=== PATIENT | male | born 1975 | race Caucasian/White ===

== ENCOUNTER 2017-12-10 18:13 | Emergency (ER) | payer BC ==
[~2017-12-10] VITALS: Ht 177.8 cm; Wt 72.1 kg
--- NOTE | 2017-12-10 18:19 | ED.ADGEN ---
Adult General Chief Complaint Chief Complaint "..I bumped my head last night on kitchen counter... but I was reading on the Internet..that sometimes with head fracture you get a runny nose..I was little stuffy and congested this morning.. so I was worried I have a head fracture and was leaking spinal fluid..." HPI HPI Patient is a 42 year old male who presents with above hx and complaints of headache after injury to his head last night. Patient has a small bump on right parietal. No current headache. Pain is localized to the bump area. No loss of consciousness. Patient ambulatory without problems. Patient does have swollen turbinates and injection of nasal mucosa with mild rhinorrhea . No current headache. No recent travel. No ill contacts. No prior head trauma. Patient denies any specific ill contacts, travel, or suppression. Patient up-to-date with vaccinations. Review of Systems Review of Systems Constitutional: Denies fever or chills [] Eyes: Denies change in visual acuity, redness, or eye pain [] HENT: Denies nasal congestion or sore throat []complains of head injury Respiratory: Denies cough or shortness of breath [] Cardiovascular: No additional information not addressed in HPI [] GI: Denies abdominal pain, nausea, vomiting, bloody stools or diarrhea [] : Denies dysuria or hematuria [] Musculoskeletal: Denies back pain or joint pain [] Integument: Denies rash or skin lesions [] Neurologic: Denies headache, focal weakness or sensory changes [] Endocrine: Denies polyuria or polydipsia [] All other systems were reviewed and found to be within normal limits, except as documented in this note. Family History Family History Noncontributory Current Medications Current Medications See nursing for home meds Allergies Allergies Seasonal allergies Physical Exam Physical Exam Constitutional: Well developed, well nourished, no acute distress, non-toxic appearance. [] HENT: Normocephalic, very small bump the right parietal, bilateral external ears normal, oropharynx moist, no oral exudates, nose swollen turbinates with inflammation. Eyes: PERRLA, EOMI, conjunctiva normal, no discharge. [] Neck: Normal range of motion, no tenderness, supple, no stridor. [] Cardiovascular:Heart rate regular rhythm, no murmur [] Lungs & Thorax: Bilateral breath sounds clear to auscultation [] Abdomen: Bowel sounds normal, soft, no tenderness, no masses, no pulsatile masses. [] Skin: Warm, dry, no erythema, no rash. [] Back: No tenderness, no CVA tenderness. [] Extremities: No tenderness, no cyanosis, no clubbing, ROM intact, no edema. [] Neurologic: Alert and oriented X 3, normal motor function, normal sensory function, no focal deficits noted. []DTRs +2 patella and brachial. Support Director equal. Ambulatory without problems. Psychologic: Affect normal, judgement normal, mood normal. [] Current Patient Data Vital Signs Vital Signs Date Time Temp Pulse Resp B/P (MAP) Pulse Ox O2 Delivery O2 Flow Rate FiO2 12/10/17 19:00 138/85 (102) 12/10/17 18:13 Room Air 12/10/17 18:13 98.0 85 20 99 EKG EKG [] Radiology/Procedures Radiology/Procedures [] Course & Med Decision Making Course & Med Decision Making Pertinent Labs and Imaging studies reviewed. (See chart for details) Patient to return if any concerns. May return tonight. Tylenol for pain. Follow- up primary care. Instructions on concussion and head injury given. Will defer CT at this time. [] Final Impression Final Impression 1. Minor head injury [] Dragon Disclaimer Dragon Disclaimer This electronic medical record was generated, in whole or in part, using a voice recognition dictation system. RAUL HAN MD Dec 10, 2017 18:19
[2017-12-10 19:00] VITALS: BP 138/85
== END 2017-12-10 19:00 | disposition home or self-care (01) ==
LOC: ER 18:13
DX: S09.90XA Unspecified injury of head, initial encounter (principal); W22.8XXA Striking against or struck by other objects, initial encounter; Y93.89 Activity, other specified; Y92.090 Kitchen in other non-institutional residence as the place of occurrence of the external cause; Y99.8 Other external cause status
CPT/HCPCS: 99284